=== PATIENT | male | born 1980 | race African-American/Black ===

== ENCOUNTER 2019-05-17 11:35 | Inpatient (IN) | payer MEDICAID ==
[~2019-05-17] VITALS: Ht 177.8 cm; Wt 77.1 kg
[2019-05-17] MEDS ORDERED: SODIUM CHLORIDE 0.9% 1,000 ML IV ONE (12:02)
[2019-05-17 12:45] LABS: BASOPHILS % 1.1 % (0.0-2.0); EOSINOPHILS % 1.1 % (0.0-5.0); HEMATOCRIT. 50.7 % (42.0-52.0); HEMOGLOBIN. 17.8 g/dL (14.0-18.0); LYMPHOCYTES % 34.1 % (20.0-50.0); MEAN CORPUSCULAR HEMOGLOBIN 30.7 pg (28.0-32.0); MEAN CORPUSCULAR VOLUME 87.7 fL (80.0-94.0); MEAN PLATELET VOLUME 8.6 fl (7.4-10.4); MONOCYTES % 8.9 % (2.0-8.0); NEUTROPHILS % 54.8 % (40.0-76.0); PLATELET 225 x1000/uL (130-400); RED BLOOD CELL COUNT 5.79 mill/uL (4.7-6.1)
[2019-05-17 12:51] LABS: CHLORIDE 96 mEq/L (98-107)
[2019-05-17 12:54] LABS: PARTIAL THROMBOPLASTIN TIME 28.7 sec (23.4-31.0); PROTHROMBIN TIME 10.5 sec (9.6-11.0)
[2019-05-17 12:55] LABS: ETHANOL BLOOD < 10 mg/dL
[2019-05-17] MEDS ORDERED: KCL 10MEQ/50ML PREMIX 50 ML IV ONE (13:15)
[2019-05-17] MEDS ORDERED: POTASSIUM CHLORIDE 20MEQ TABLET SR PO ONE (13:15)
[2019-05-17 13:52] LABS: T4 FREE 1.47 ng/dL (0.76-1.46)
[2019-05-17] MEDS ORDERED: ASPIRIN 81MG TABLET PO ONE (14:00)
[2019-05-17] MEDS ORDERED: DOCUSATE SODIUM 100MG CAPSULE PO PRN (16:30)
[2019-05-17] MEDS ORDERED: MAGNESIUM/ALUMINUM HYDROXIDE/SIMETHICONE 30ML UDC PO PRN (16:30)
[2019-05-17] MEDS ORDERED: ZOLPIDEM TARTRATE 5MG TABLET PO PRN (16:30)
[2019-05-17] MEDS ORDERED: LORAZEPAM 0.5MG TABLET PO PRN (16:30)
[2019-05-17] MEDS ORDERED: ONDANSETRON HCL 4MG/2ML INJ IV PRN (16:30)
[2019-05-17] MEDS ORDERED: KETOROLAC 15MG/ML VIAL IV PRN (16:30)
[2019-05-17] MEDS ORDERED: IPRATROPIUM/ALBUTEROL 0.5-3(2.5)MG/3ML NEB INH PRN (16:30)
[2019-05-17] MEDS ORDERED: ACETAMINOPHEN 325MG TABLET PO PRN (16:30)
[2019-05-17] MEDS ORDERED: POTASSIUM CHLORIDE 20MEQ TABLET SR PO NR (16:30)
[2019-05-17] MEDS ORDERED: GUAIFENESIN 200MG/10ML SUGAR FREE UDC PO PRN (16:30)
[2019-05-17] MEDS ORDERED: NITROGLYCERIN 0.4MG TABLET SL SL PRN (16:30)
[2019-05-17] MEDS ORDERED: CLONIDINE 0.1MG TABLET PO PRN (16:30)
[2019-05-17 17:34] LABS: *AMPHETAMINES SCREEN URINE NEGATIVE (NEGATIVE); *BARBITURATES SCREEN URINE NEGATIVE (NEGATIVE); *BENZODIAZEPINES SCREEN URINE NEGATIVE (NEGATIVE); *COCAINE SCREEN URINE NEGATIVE (NEGATIVE)
[2019-05-17 17:35] LABS: CANNABINOID URINE SCREEN PRESUMTIVE POSITIVE (NEGATIVE); METHADONE URINE SCREEN NEGATIVE (NEGATIVE); OPIATES URINE SCREEN NEGATIVE (NEGATIVE); PHENCYCLIDINE URINE SCREEN NEGATIVE (NEGATIVE)
[2019-05-17 18:00] VITALS: BP 144/83
[2019-05-17] MEDS: DILTIAZEM HCL 60MG TABLET PO SCH ×2 (19:09→23:23)
[2019-05-17 20:00] VITALS: BP 137/91
[2019-05-17] MEDS: FAMOTIDINE 20MG TABLET PO SCH (21:24)
[2019-05-17] MEDS ORDERED: HYDR25TA PO (23:16)
[2019-05-17] MEDS ORDERED: AMLO10TA80 PO (23:16)
[2019-05-17 23:33] LABS: CREATINE KINASE 193 IU/L (39-308)
[2019-05-17 23:34] LABS: CREATINE KINASE MB FRACTION < 1.0 ng/mL (0.5-3.6)
[2019-05-18] VITALS: BP 145/81
[2019-05-18 04:00] VITALS: BP 140/78
[2019-05-18] MEDS: DILTIAZEM HCL 60MG TABLET PO SCH (06:06)
[2019-05-18 08:00] VITALS: BP 140/91
[2019-05-18 08:29] LABS: CHLORIDE 101 mEq/L (98-107)
[2019-05-18] MEDS: FAMOTIDINE 20MG TABLET PO SCH (08:33)
[2019-05-18 08:37] LABS: CREATINE KINASE 173 IU/L (39-308)
[2019-05-18 08:39] LABS: CREATINE KINASE MB FRACTION < 1.0 ng/mL (0.5-3.6)
[2019-05-18] MEDS ORDERED: ASPIRIN 81MG EC TABLET PO SCH (09:00)
[2019-05-18] MEDS ORDERED: POTASSIUM CHLORIDE 20MEQ/PACKET PO NR (10:45)
[2019-05-18 11:40] VITALS: BP 140/91
== END 2019-05-18 12:00 | disposition home or self-care (01) | DRG 203 ==
LOC: ER 11:54 → 7WST 16:05 → EDBEDREQ 16:11 → ENRESERV 17:07
PROVIDERS: ADMIT Internal Medicine; ATTEND Internal Medicine
DX: R07.89 Other chest pain (principal); E87.6 Hypokalemia; I10 Essential (primary) hypertension; T50.2X5A Adverse effect of carbonic-anhydrase inhibitors, benzothiadiazides and other diuretics, initial encounter; F12.10 Cannabis abuse, uncomplicated; F17.210 Nicotine dependence, cigarettes, uncomplicated; Y92.89 Other specified places as the place of occurrence of the external cause
CPT/HCPCS: 36415; 80048; 80061; 80305; 80320; 82550; 82553; 83036; 83735; 83880; 84439; 84443; 84484; 85379; 93005; 93970; 99285; J3480; J7030; G0480